=== PATIENT | female | born 1945 | race Caucasian/White ===

== ENCOUNTER → 2017-02-28 | Outpatient (CLI) | payer MEDICARE | END | disposition home or self-care (01) | LOC: CFH 12:12 | PROVIDERS: ATTEND Internal Medicine Cardiovascular Disease | DX: I10 Essential (primary) hypertension (principal); R06.02 Shortness of breath; Z13.6 Encounter for screening for cardiovascular disorders; K44.9 Diaphragmatic hernia without obstruction or gangrene | CPT/HCPCS: 75571 ==

== ENCOUNTER → 2017-05-15 | Outpatient (CLI) | payer MEDICARE | END | disposition home or self-care (01) | LOC: CFH 07:40 | PROVIDERS: ATTEND Internal Medicine Cardiovascular Disease | DX: I25.10 Atherosclerotic heart disease of native coronary artery without angina pectoris (principal) | CPT/HCPCS: 78452; 93017; A9502 ==

== ENCOUNTER 2017-05-28 05:52 | Inpatient (IN) | payer MEDICARE ==
[~2017-05-28] VITALS: Ht 167.6 cm; Wt 80.3 kg
[2017-05-28] MEDS ORDERED: NITROGLYCERIN OINT 2%, 1GM TP ONE ×2 (06:06→06:30)
[2017-05-28] MEDS ORDERED: ACETAMINOPHEN 500 MG TABLET ONE (06:19)
[2017-05-28] MEDS ORDERED: SODIUM CHLORIDE FLUSH 10ML SYR IVF ONE (06:30)
[2017-05-28] MEDS ORDERED: ACETAMINOPHEN 500 MG TABLET PO ONE (06:30)
[2017-05-28] MEDS ORDERED: LOSA1TAB25 PO (06:41)
[2017-05-28] MEDS ORDERED: ATOR20TA PO (06:41)
[2017-05-28] MEDS ORDERED: LEVO25TA2 PO (06:41)
[2017-05-28] MEDS ORDERED: METO-264 PO (06:41)
[2017-05-28 06:55] LABS: BASOPHILS # (AUTO) 0.09 x10^3/uL (0-0.1); BASOPHILS % (AUTO) 1 % (0-1); EOSINOPHILS # (AUTO) 0.15 x10^3/uL (0-0.4); EOSINOPHILS % (AUTO) 2 % (1-7); LYMPHOCYTES # (AUTO) 1.56 x10^3/uL (1-3.4); LYMPHOCYTES % (AUTO) 24 % (22-44); MD NO; MEAN CORPUSCULAR HEMOGLOBIN 31.8 pg (27.0-34.8); MEAN CORPUSCULAR HGB CONC 34.4 g/dL (32.4-35.8); MEAN CORPUSCULAR VOLUME 92.4 fL (80-100); MEAN PLATELET VOLUME 9.5 fL (7.4-10.4); MONOCYTES # (AUTO) 0.53 x10^3/uL (0.2-0.8); MONOCYTES % (AUTO) 8 % (2-9); NEUTROPHILS % (AUTO) 65 % (42-75); PLATELET COUNT 204 x10^3/uL (130-400); RED BLOOD COUNT 3.78 x10^6/uL (3.82-5.3); RED CELL DISTRIBUTION WIDTH 12.8 % (9.6-15.2)
[2017-05-28] MEDS ORDERED: ASPI-496 PO (07:05)
[2017-05-28 07:07] LABS: ALANINE AMINOTRANSFERASE 20 U/L (12-78); ALBUMIN 3.2 g/dL (3.4-5.0); ANION GAP 5 mmol/L (5-15); CALCIUM 8.4 mg/dL (8.5-10.1); CHLORIDE 110 mmol/L (98-107); CREATININE 0.72 mg/dL (0.55-1.02)
[2017-05-28 07:12] LABS: ALKALINE PHOSPHATASE 67 U/L (45-117); BILIRUBIN,TOTAL 0.5 mg/dL (0.2-1.0); TROPONIN I 0.052 ng/mL (0.000-0.045)
[2017-05-28 08:53] VITALS: BP 133/73
[2017-05-28] MEDS ORDERED: ONDANSETRON 2MG/ML, 2ML IVPush PRN (11:00)
[2017-05-28] MEDS ORDERED: HYDROmorphone 1 MG/ML, 1ML IM PRN (11:00)
[2017-05-28] MEDS ORDERED: NITROGLYCERIN 0.4 MG BOTTLE (25 TABS) SL PRN (11:00)
[2017-05-28] MEDS ORDERED: HEPARIN 25,000 UNITS/500ML PMX 500 ML IV PRN (11:00)
[2017-05-28] MEDS ORDERED: LABETALOL 5MG/ML, 20ML IVPush PRN (11:00)
[2017-05-28] MEDS ORDERED: TRAZODONE 50MG TABLET PO PRN (11:00)
[2017-05-28] MEDS ORDERED: HEPARIN 5,000 UNITS/ML, 1ML IV ONE (11:00)
[2017-05-28] MEDS ORDERED: ONDANSETRON ODT 4 MG PO PRN (11:00)
[2017-05-28] MEDS ORDERED: BISACODYL 10 MG SUPP PR PRN (11:00)
[2017-05-28] MEDS ORDERED: GUAIFENESIN/DM 200-20MG, 10ML UDC PO PRN (11:00)
[2017-05-28] MEDS ORDERED: DOCUSATE 100 MG CAPSULE PO PRN (11:00)
[2017-05-28] MEDS ORDERED: hydrALAzine 20 MG/ML, 1ML IVPush PRN (11:00)
[2017-05-28] MEDS ORDERED: ENALAPRILAT 1.25 MG/ML, 2ML IVPush PRN (11:00)
[2017-05-28 11:04] LABS: HCT (SEDRATE) 34.6 % (34.6-47.8)
[2017-05-28 11:19] LABS: TROPONIN I 0.919 ng/mL (0.000-0.045)
[2017-05-28 12:03] LABS: HEMOGLOBIN A1C 6.2 % (4.2-6.3)
[2017-05-28 13:10] LABS: FREE T4 (FREE THYROXINE) 2.11 ng/dL (0.76-1.46); THYROID STIMULATING HORMONE 1.54 mIU/L (0.358-3.740)
[2017-05-28 13:20] VITALS: BP 127/79
[2017-05-28 13:39] VITALS: BP 133/73
[2017-05-28] MEDS: FAMOTIDINE 20 MG TABLET PO SCH (17:25)
[2017-05-28] MEDS: HEPARIN 5,000 UNITS/ML, 1ML IV PRN (18:22)
[2017-05-28 20:45] VITALS: BP 130/81
[2017-05-28] MEDS: LACTULOSE 10 GM/15 ML UDC PO SCH (21:00)
[2017-05-28] MEDS ORDERED: ATORVASTATIN 40 MG TABLET PO SCH (21:00)
[2017-05-28] MEDS ORDERED: ASPIRIN 81 MG TABLET EC PO SCH (21:00)
[2017-05-28] MEDS ORDERED: DIPHENHYDRAMINE 25 MG CAPSULE PO PRN (21:30)
[2017-05-28] MEDS: ACETAMINOPHEN 325 MG TABLET PO PRN (21:45)
[2017-05-28 22:51] VITALS: BP 149/80
[2017-05-28 23:20] VITALS: BP 113/67
[2017-05-29] MEDS: HEPARIN 5,000 UNITS/ML, 1ML IV PRN ×2 (01:20→09:06)
[2017-05-29 02:15] VITALS: BP 136/77
[2017-05-29] MEDS ORDERED: LEVOTHYROXINE 25 MCG TABLET PO SCH (06:00)
[2017-05-29 06:47] VITALS: BP 137/79
[2017-05-29 08:20] LABS: BASOPHILS # (AUTO) 0.08 x10^3/uL (0-0.1); BASOPHILS % (AUTO) 1 % (0-1); EOSINOPHILS # (AUTO) 0.12 x10^3/uL (0-0.4); EOSINOPHILS % (AUTO) 2 % (1-7); LYMPHOCYTES # (AUTO) 1.83 x10^3/uL (1-3.4); LYMPHOCYTES % (AUTO) 23 % (22-44); MD NO; MEAN CORPUSCULAR HEMOGLOBIN 32.5 pg (27.0-34.8); MEAN CORPUSCULAR HGB CONC 34.4 g/dL (32.4-35.8); MEAN CORPUSCULAR VOLUME 94.3 fL (80-100); MEAN PLATELET VOLUME 9.7 fL (7.4-10.4); MONOCYTES % (AUTO) 8 % (2-9); NEUTROPHILS # (AUTO) 5.37 x10^3/uL (1.8-6.8); NEUTROPHILS % (AUTO) 67 % (42-75); PLATELET COUNT 203 x10^3/uL (130-400); RED BLOOD COUNT 3.94 x10^6/uL (3.82-5.3); RED CELL DISTRIBUTION WIDTH 12.9 % (9.6-15.2)
[2017-05-29] MEDS: LACTULOSE 10 GM/15 ML UDC PO SCH (08:28)
[2017-05-29 08:30] LABS: ANION GAP 5 mmol/L (5-15); CALCIUM 8.9 mg/dL (8.5-10.1); CHLORIDE 111 mmol/L (98-107); CHOLESTEROL, TOTAL 95 mg/dL (140-239); CREATININE 0.62 mg/dL (0.55-1.02)
[2017-05-29] MEDS: FAMOTIDINE 20 MG TABLET PO SCH (08:31)
[2017-05-29 08:32] LABS: CHOL/HDL RATIO 1.8; HDL CHOL % 57 % (28-40); HDL CHOLESTEROL (DIRECT) 54 mg/dL (40-60); LDL CHOLESTEROL,CALCULATED 32 mg/dL (54-169); LDL/HDL RATIO 0.6 (0.5-3.0); TRIGLYCERIDES 46 mg/dL (50-200); VLDL CHOLESTEROL 9 mg/dL (0-25)
[2017-05-29] MEDS ORDERED: METOPROLOL SUCCINATE 50 MG TAB.ER.24H PO SCH (09:00)
[2017-05-29] MEDS ORDERED: HYDROCHLOROTHIAZIDE 12.5 MG CAPSULE PO SCH (09:00)
[2017-05-29] MEDS ORDERED: LOSARTAN 50MG TABLET PO SCH (09:00)
[2017-05-29] MEDS ORDERED: MIDAZOLAM 1 MG/ML, 5ML ONE (10:41)
[2017-05-29] MEDS ORDERED: NITROGLYCERIN 5 MG/ML, 10ML ONE (10:42)
[2017-05-29] MEDS ORDERED: VERAPAMIL 2.5 MG/ML, 2ML ONE (10:42)
[2017-05-29] MEDS ORDERED: LIDOCAINE 2%, 20ML ONE (10:42)
[2017-05-29] MEDS ORDERED: FENTANYL PF 100 MCG/2ML ONE (10:42)
[2017-05-29] MEDS ORDERED: HEPARIN 1,000 UNITS/ML, 10ML ONE (10:42)
[2017-05-29] MEDS ORDERED: BIVALIRUDIN 250 MG ONE (10:42)
[2017-05-29] MEDS ORDERED: SODIUM CHLORIDE 0.9% 1,000 ML IV SCH (12:03)
[2017-05-29 14:34] VITALS: BP 118/73
[2017-05-29] MEDS: ACETAMINOPHEN 325 MG TABLET PO PRN (15:08)
[2017-05-29] MEDS ORDERED: VALS80TA MT (15:29)
[2017-05-29] MEDS ORDERED: LISI-167 PO (15:29)
[2017-05-29] MEDS ORDERED: LEVO50TA PO (16:08)
[2017-05-29] MEDS ORDERED: ATOR40TA78 PO (17:20)
[2017-05-29 18:58] VITALS: BP 103/53
[2017-05-29 19:44] VITALS: BP_SYST 123; BP_SYST 126; BP_SYST 129; BP_DIAS 72; BP_DIAS 78; BP_DIAS 79
== END 2017-05-29 20:25 | disposition home or self-care (01) | DRG 281 ==
LOC: ED 07:10 → EDIP 07:19 → ED 07:24 → 5SO 09:45
PROVIDERS: ADMIT Family Medicine; ATTEND Family Medicine
PROC: 4A023N7 Measurement of Cardiac Sampling and Pressure, Left Heart, Percutaneous Approach (ICD-10-PCS; principal; 2017-05-29)
PROC: B2111ZZ Fluoroscopy of Multiple Coronary Arteries using Low Osmolar Contrast (ICD-10-PCS; 2017-05-29)
PROC: B2151ZZ Fluoroscopy of Left Heart using Low Osmolar Contrast (ICD-10-PCS; 2017-05-29)
DX: I51.81 Takotsubo syndrome (principal); I21.4 Non-ST elevation (NSTEMI) myocardial infarction; I25.110 Atherosclerotic heart disease of native coronary artery with unstable angina pectoris; E03.9 Hypothyroidism, unspecified; E78.5 Hyperlipidemia, unspecified; I10 Essential (primary) hypertension; Z87.891 Personal history of nicotine dependence; Z88.5 Allergy status to narcotic agent
CPT/HCPCS: 36415; 80048; 80053; 80061; 83036; 83690; 83735; 84100; 84439; 84443; 84484; 85025; 85520; 85651; 93005; 93458; 99156; 99285; C1769; C1894; J0583; J1644; J2250; J2405; J3010; J3490; Q0163; Q9967

== ENCOUNTER 2017-06-22 23:56 | Emergency (ER) | payer MEDICARE ==
[~2017-06-22] VITALS: Ht 172.7 cm; Wt 97.0 kg
[~2017-06-22 23:56] MED LIST: ASPI-496 PO; ATOR20TA PO; ATOR40TA78 PO; LEVO25TA2 PO; LEVO50TA PO; LISI-167 PO; LOSA1TAB25 PO; METO-264 PO; VALS80TA MT
[2017-06-23 00:40] VITALS: BP 164/78
[2017-06-23 01:06] LABS: CULTURE INDICATED? YES; MICROSCOPIC INDICATED
[2017-06-23] MEDS ORDERED: PHENAZOPYRIDINE 200 MG TABLET ONE (01:56)
[2017-06-23] MEDS ORDERED: CIPROFLOXACIN 500 MG TABLET ONE (01:57)
[2017-06-23] MEDS ORDERED: ONDANSETRON ODT 4 MG ONE (01:57)
[2017-06-23 01:58] LABS: MICROSCOPIC INDICATED
[2017-06-23 01:59] LABS: CULTURE INDICATED? YES
[2017-06-23] MEDS ORDERED: ONDANSETRON ODT 4 MG PO ONE (02:00)
[2017-06-23] MEDS ORDERED: CIPROFLOXACIN 500 MG TABLET PO ONE (02:00)
[2017-06-23] MEDS ORDERED: PHENAZOPYRIDINE 200 MG TABLET PO ONE (02:00)
== END 2017-06-23 02:38 | disposition home or self-care (01) ==
LOC: ED 23:59
DX: N30.01 Acute cystitis with hematuria (principal); I10 Essential (primary) hypertension; E03.9 Hypothyroidism, unspecified; M32.9 Systemic lupus erythematosus, unspecified
CPT/HCPCS: 81001; 87077; 87086; 87186; 99284; Q0162

== ENCOUNTER → 2017-09-14 | Outpatient (CLI) | payer MEDICARE ==
[~2017-09-14] MED LIST changes: -VALS80TA MT; +VALS80TA29 MT
== END | disposition home or self-care (01) ==
LOC: CFH 08:50
PROVIDERS: ATTEND Internal Medicine
DX: Z12.31 Encounter for screening mammogram for malignant neoplasm of breast (principal)
CPT/HCPCS: 77067

== ENCOUNTER 2017-10-09 23:46 | Observation (INO) | payer MEDICARE ==
[~2017-10-09] VITALS: Ht 167.6 cm; Wt 81.5 kg
[2017-10-10 00:30] LABS: BASOPHILS # (AUTO) 0.06 x10^3/uL (0-0.1); BASOPHILS % (AUTO) 1 % (0-1); EOSINOPHILS # (AUTO) 0.22 x10^3/uL (0-0.4); EOSINOPHILS % (AUTO) 3 % (1-7); LYMPHOCYTES # (AUTO) 2.25 x10^3/uL (1-3.4); LYMPHOCYTES % (AUTO) 31 % (22-44); MD NO; MEAN CORPUSCULAR HEMOGLOBIN 32.7 pg (27.0-34.8); MEAN CORPUSCULAR HGB CONC 34.2 g/dL (32.4-35.8); MEAN CORPUSCULAR VOLUME 95.5 fL (80-100); MEAN PLATELET VOLUME 9.1 fL (7.4-10.4); MONOCYTES % (AUTO) 10 % (2-9); NEUTROPHILS # (AUTO) 3.98 x10^3/uL (1.8-6.8); NEUTROPHILS % (AUTO) 55 % (42-75); PLATELET COUNT 218 x10^3/uL (130-400); RED BLOOD COUNT 3.91 x10^6/uL (3.82-5.3); RED CELL DISTRIBUTION WIDTH 13.1 % (9.6-15.2)
[2017-10-10] MEDS ORDERED: SODIUM CHLORIDE FLUSH 10ML SYR IVF ONE (00:30)
[2017-10-10] MEDS ORDERED: NITROGLYCERIN SINGLE TAB 0.4 MG SL PRN (00:30)
[2017-10-10] MEDS ORDERED: ONDANSETRON ODT 4 MG PO ONE (00:30)
[2017-10-10] MEDS ORDERED: FENTANYL PF 100 MCG/2ML IVPush PRN (00:30)
[2017-10-10] MEDS ORDERED: NITROGLYCERIN SINGLE TAB 0.4 MG SL ONE (00:32)
[2017-10-10] MEDS ORDERED: ONDANSETRON ODT 4 MG ONE (00:32)
[2017-10-10] MEDS ORDERED: FENTANYL PF 100 MCG/2ML ONE (00:32)
[2017-10-10 00:39] LABS: INTERNATIONAL NORMALIZED RATIO 0.98 (0.93-1.1); PROTHROMBIN TIME 10.2 Seconds (9.6-11.5)
[2017-10-10 00:43] LABS: ALANINE AMINOTRANSFERASE 26 U/L (12-78); ALBUMIN 3.5 g/dL (3.4-5.0); ANION GAP 6 mmol/L (5-15); CALCIUM 9.3 mg/dL (8.5-10.1); CHLORIDE 110 mmol/L (98-107); CREATININE 0.93 mg/dL (0.55-1.02)
[2017-10-10 00:47] LABS: ALKALINE PHOSPHATASE 73 U/L (45-117); BILIRUBIN,TOTAL 0.4 mg/dL (0.2-1.0); TOTAL PROTEIN 7.7 g/dL (6.4-8.2); TROPONIN I < 0.015 ng/mL (0.000-0.045)
[2017-10-10] MEDS ORDERED: OMNIPAQUE 350 MG/ML, 100ML BOTTLE ONE (01:25)
[2017-10-10] MEDS ORDERED: NITROGLYCERIN OINT 2%, 1GM TP ONE (02:00)
[2017-10-10 03:05] VITALS: BP 149/75
[2017-10-10 03:10] VITALS: BP 149/75
[2017-10-10] MEDS ORDERED: SODIUM CHLORIDE 0.9% 1,000 ML IV SCH (05:06)
[2017-10-10] MEDS ORDERED: ATOR-2 PO (05:22)
[2017-10-10] MEDS ORDERED: POTA20TA89 PO (05:22)
[2017-10-10] MEDS ORDERED: NITR0.4T28 SL (05:22)
[2017-10-10] MEDS ORDERED: MAGN200T7 PO (05:22)
[2017-10-10] MEDS ORDERED: GUAIFENESIN/DM 200-20MG, 10ML UDC PO PRN (05:30)
[2017-10-10] MEDS ORDERED: KETOROLAC 30 MG/1 ML IVPush SCH ×2 (05:30→10:30)
[2017-10-10] MEDS ORDERED: hydrALAzine 20 MG/ML, 1ML IVPush PRN (05:30)
[2017-10-10] MEDS ORDERED: ONDANSETRON ODT 4 MG PO PRN (05:30)
[2017-10-10] MEDS ORDERED: ACETAMINOPHEN 500 MG TABLET PO PRN (05:30)
[2017-10-10] MEDS ORDERED: LEVOTHYROXINE 50 MCG TABLET PO SCH (06:00)
[2017-10-10 06:46] LABS: CHOLESTEROL, TOTAL 89 mg/dL (140-239); TRIGLYCERIDES 39 mg/dL (50-200); VLDL CHOLESTEROL 8 mg/dL (0-25)
[2017-10-10 06:49] LABS: CHOL/HDL RATIO 2.1; HDL CHOL % 48 % (28-40); HDL CHOLESTEROL (DIRECT) 43 mg/dL (40-60); LDL CHOLESTEROL,CALCULATED 38 mg/dL (54-169); LDL/HDL RATIO 0.9 (0.5-3.0); TROPONIN I < 0.015 ng/mL (0.000-0.045)
[2017-10-10 07:54] VITALS: BP 132/69
[2017-10-10] MEDS ORDERED: VALSARTAN 80 MG TABLET PO SCH (09:00)
[2017-10-10] MEDS ORDERED: METOPROLOL SUCCINATE 50 MG TAB.ER.24H PO SCH (09:00)
[2017-10-10] MEDS ORDERED: KETOROLAC 30 MG/1 ML IVPush PRN (10:30)
[2017-10-10] MEDS ORDERED: CYCLOBENZAPRINE 10 MG TABLET PO PRN (11:30)
[2017-10-10 12:04] VITALS: BP 132/76
[2017-10-10] MEDS ORDERED: CYCL-259 PO (15:11)
[2017-10-10] MEDS ORDERED: ASPIRIN 81 MG TABLET EC PO SCH (21:00)
[2017-10-10] MEDS ORDERED: ATORVASTATIN 40 MG TABLET PO SCH (21:00)
== END 2017-10-10 15:45 | disposition home or self-care (01) ==
LOC: ED 23:59 → EDIP 10-10 01:53 → INTOOBSV 10-10 01:53 → 4WST 10-10 03:17 → DCLOUNGE 10-10 15:36
PROVIDERS: ADMIT Hospitalist; ATTEND Hospitalist
DX: M54.5 Low back pain (principal); E78.5 Hyperlipidemia, unspecified; I10 Essential (primary) hypertension; I25.10 Atherosclerotic heart disease of native coronary artery without angina pectoris
CPT/HCPCS: 36415; 71045; 71275; 80053; 80061; 83880; 84484; 85025; 85610; 85730; 93005; 96361; 96374; 96375; 96376; 99285; G0378; J1885; J3010; J7030; Q0162; Q9967

== ENCOUNTER 2019-04-12 19:30 | Emergency (ER) | payer MEDICARE ==
[~2019-04-12] VITALS: Ht 167.6 cm; Wt 82.7 kg
[~2019-04-12 19:30] MED LIST changes: +ATOR-2 PO; +CYCL-259 PO; +MAGN200T7 PO; +NITR0.4T28 SL; +POTA20TA89 PO; -VALS80TA29 MT; +VALS80TA30 MT
--- NOTE | 2019-04-12 19:52 | NUR ---
PT C/O 10/10 PAIN WITH URINATION. NO FEVER PRESENT, URINE TEA COLORED. PT RESORTS HX OF UTI AND HAS SEEN UROLOGIST IN LAST WEEK. PT RESTING ON GURNEY WITH FAMILY AT BS. PT CONNECTED TO MONITORING, SAFETY MEASURES IN PLACE, CALL LIGHT WITHIN REACH.
--- NOTE | 2019-04-12 19:54 | NUR ---
URINE SAMPLE PROVIDED.
[2019-04-12] MEDS ORDERED: PHENAZOPYRIDINE 200 MG TABLET PO ONE (20:00)
[2019-04-12 20:08] LABS: CULTURE INDICATED? YES; MICROSCOPIC INDICATED
[2019-04-12] MEDS ORDERED: PHENAZOPYRIDINE 200 MG TABLET ONE (20:17)
[2019-04-12 20:20] VITALS: BP 145/60
--- NOTE | 2019-04-12 20:21 | NUR ---
PT RESTING ON [place] WITH FAMILY AT BS. ALL QUESTIONS ANSWERED. MONITORING IN PLACE, CALL LIGHT WITHIN REACH, SAFETY MEASURES IN PLACE.
[2019-04-12] MEDS ORDERED: CEFDINIR 300 MG CAPSULE PO ONE (20:30)
[2019-04-12] MEDS ORDERED: CEFDINIR 300 MG CAPSULE ONE (20:34)
== END 2019-04-12 21:02 | disposition home or self-care (01) ==
LOC: ED 21:00
DX: N30.01 Acute cystitis with hematuria (principal); I10 Essential (primary) hypertension; Z87.891 Personal history of nicotine dependence
CPT/HCPCS: 81001; 87077; 87086; 87186; 99283

== ENCOUNTER → 2019-05-09 | Outpatient (CLI) | payer MEDICARE ==
[~2019-05-09] MED LIST changes: +OMNIPAQUE 350 MG/ML, 150 ML BOTTLE ONE
== END | disposition home or self-care (01) ==
LOC: CFH 11:33
PROVIDERS: ATTEND Physician Assistant
DX: K44.9 Diaphragmatic hernia without obstruction or gangrene (principal); K76.89 Other specified diseases of liver; N39.0 Urinary tract infection, site not specified; N94.89 Other specified conditions associated with female genital organs and menstrual cycle; M47.816 Spondylosis without myelopathy or radiculopathy, lumbar region; M48.061 Spinal stenosis, lumbar region without neurogenic claudication
CPT/HCPCS: 74178; 82565; Q9967

== ENCOUNTER → 2020-05-19 | Outpatient (CLI) | payer MEDICARE ==
[~2020-05-19] MED LIST changes: -OMNIPAQUE 350 MG/ML, 150 ML BOTTLE ONE; +REGADENOSON 0.4 MG/5 ML SYRINGE ONE
== END | disposition home or self-care (01) ==
LOC: CFH 07:25
PROVIDERS: ATTEND Internal Medicine Cardiovascular Disease
DX: I08.8 Other rheumatic multiple valve diseases (principal); I25.10 Atherosclerotic heart disease of native coronary artery without angina pectoris; I10 Essential (primary) hypertension
CPT/HCPCS: 78452; 93017; 93306; A9502; J2785

== ENCOUNTER 2020-09-24 22:12 | Inpatient (IN) | payer MEDICARE ==
[~2020-09-24] VITALS: Ht 165.1 cm; Wt 79.0 kg
[~2020-09-24 22:12] MED LIST changes: -CYCL-259 PO; +CYCL10TA2 PO; -REGADENOSON 0.4 MG/5 ML SYRINGE ONE
--- NOTE | 2020-09-24 22:28 | NUR ---
PT CHANGING INTO GOWN AT THIS TIME
--- NOTE | 2020-09-24 22:40 | NUR ---
PT STS BM BRIGHT RED BLOOD STARTED TONIGHT, DENIES PAIN BUT STS SOME CRAMPIING. PT CALM COOPERATIVE, CONNECTED TO MONITORIING VSS.
[2020-09-24] MEDS ORDERED: SODIUM CHLORIDE FLUSH 10ML SYR IVF ONE (23:30)
[2020-09-25 00:18] LABS: BASOPHILS % (AUTO) 1 % (0-1); EOSINOPHILS % (AUTO) 3 % (1-7); LYMPHOCYTES % (AUTO) 23 % (22-44); MEAN CORPUSCULAR HGB CONC 34.2 g/dL (32.4-35.8); MEAN PLATELET VOLUME 9.8 fL (7.4-10.4); MONOCYTES % (AUTO) 9 % (2-9); NEUTROPHILS % (AUTO) 64 % (42-75); PLATELET COUNT 227 x10^3/uL (130-400); RED CELL DISTRIBUTION WIDTH 13.1 % (9.6-15.2)
[2020-09-25 00:19] LABS: MD NO
--- NOTE | 2020-09-25 00:20 | NUR ---
PT HAD AN EPISODE OF BRIGHT RED BLOOD, PT CLEANED AND REPOSITIONED TO COMFORT
[2020-09-25 00:23] LABS: ALANINE AMINOTRANSFERASE 31 U/L (12-78); ALBUMIN 3.4 g/dL (3.4-5.0); ANION GAP 4 mmol/L (5-15); CALCIUM 9.4 mg/dL (8.5-10.1); CHLORIDE 112 mmol/L (98-107); CREATININE 0.67 mg/dL (0.55-1.02); INTERNATIONAL NORMALIZED RATIO 1.02 (0.93-1.1); PROTHROMBIN TIME 10.9 Seconds (9.6-11.5)
[2020-09-25 00:26] LABS: ALKALINE PHOSPHATASE 103 U/L (45-117); BILIRUBIN,TOTAL 0.4 mg/dL (0.2-1.0); TOTAL PROTEIN 7.3 g/dL (6.4-8.2)
--- NOTE | 2020-09-25 00:42 | NUR ---
REPORT TO KAYLA AT THIS TIME ALL QUESTIONS ADDRESSED
--- NOTE | 2020-09-25 00:46 | NUR ---
RECIEVED REPORT FROM CARL TRISTAN.
[2020-09-25] MEDS ORDERED: OMNIPAQUE 350 MG/ML, 100ML BOTTLE ONE (01:06)
--- NOTE | 2020-09-25 01:08 | NUR ---
PT BACK FROM CT OF ABD.
--- NOTE | 2020-09-25 01:18 | NUR ---
PT STATES STILL FEELS ABDOMINAL CRAMPING/BLOATED. PASS CLOTS AND BLOOD WHEN WENT TO THE RESTROOM AND ON THE PAD ABOUT 2 TBSP. TOTAL OF 3 TIMES AT HOSPITAL TONIGHT. PT ALSO STATES IS ON BIPAP WHEN SLEEPS.
--- NOTE | 2020-09-25 01:50 | NUR ---
PT JUST STATED PASSED GAS AND SOME OF THE BLOATING IS DOWN.
[2020-09-25] MEDS ORDERED: SODIUM CHLORIDE 0.9% 1,000ML IVBOLUS ONE (03:00)
[2020-09-25] MEDS ORDERED: PANTOPRAZOLE 40 MG IV IVPush ONE (03:00)
[2020-09-25] MEDS ORDERED: PANTOPRAZOLE 40 MG IV ONE (03:00)
[2020-09-25] MEDS ORDERED: ACETAMINOPHEN 325 MG TABLET PO ONE (03:00)
[2020-09-25] MEDS ORDERED: ONDANSETRON 2MG/ML, 2ML IV PRN (03:00)
[2020-09-25] MEDS ORDERED: SODIUM CHLORIDE 0.9% 1,000 ML IV SCH (03:00)
[2020-09-25 04:42] VITALS: BP 144/51
[2020-09-25] MEDS: LEVOTHYROXINE 50 MCG TABLET PO SCH (06:06)
[2020-09-25 06:41] VITALS: BP 153/77
[2020-09-25] MEDS: VALSARTAN 80 MG TABLET PO SCH ×2 (09:53→09:58)
[2020-09-25] MEDS: METOPROLOL SUCCINATE 50 MG TAB.ER.24H PO SCH (09:53)
[2020-09-25 09:55] LABS: ALANINE AMINOTRANSFERASE 26 U/L (12-78); ALBUMIN 3.1 g/dL (3.4-5.0); ANION GAP 3 mmol/L (5-15); CALCIUM 8.5 mg/dL (8.5-10.1); CHLORIDE 114 mmol/L (98-107); CREATININE 0.51 mg/dL (0.55-1.02)
[2020-09-25 09:57] LABS: ALKALINE PHOSPHATASE 84 U/L (45-117); BILIRUBIN,TOTAL 0.7 mg/dL (0.2-1.0); TOTAL PROTEIN 6.4 g/dL (6.4-8.2)
[2020-09-25] MEDS: PANTOPRAZOLE 40 MG IV IVPush SCH ×2 (12:57→22:43)
[2020-09-25 13:10] VITALS: BP 170/70
[2020-09-25] MEDS ORDERED: LOSA25TA25 PO (14:05)
[2020-09-25] MEDS ORDERED: ACETAMINOPHEN 325 MG TABLET PO PRN (16:00)
[2020-09-25] MEDS: POLYETHYLENE GLYCOL 17 GM PACKET PO SCH (19:43)
[2020-09-25 19:46] VITALS: BP 167/73
[2020-09-25] MEDS ORDERED: ATORVASTATIN 80 MG TABLET PO SCH (21:00)
[2020-09-25] MEDS ORDERED: ATORVASTATIN 20 MG TABLET PO SCH (21:00)
[2020-09-26 00:41] VITALS: BP 170/77
[2020-09-26 03:32] LABS: ALBUMIN 2.9 g/dL (3.4-5.0); ANION GAP 4 mmol/L (5-15); BASOPHILS % (AUTO) 1 % (0-1); CALCIUM 8.7 mg/dL (8.5-10.1); CHLORIDE 114 mmol/L (98-107); EOSINOPHILS % (AUTO) 3 % (1-7); LYMPHOCYTES % (AUTO) 34 % (22-44); MEAN CORPUSCULAR HEMOGLOBIN 33.6 pg (27.0-34.8); MEAN CORPUSCULAR HGB CONC 35.3 g/dL (32.4-35.8); MEAN PLATELET VOLUME 8.8 fL (7.4-10.4); MONOCYTES % (AUTO) 10 % (2-9); NEUTROPHILS % (AUTO) 52 % (42-75); PLATELET COUNT 192 x10^3/uL (130-400); RED BLOOD COUNT 3.35 x10^6/uL (3.82-5.3)
[2020-09-26 03:36] LABS: ALANINE AMINOTRANSFERASE 24 U/L (12-78); ALKALINE PHOSPHATASE 81 U/L (45-117); BILIRUBIN,TOTAL 0.8 mg/dL (0.2-1.0); TOTAL PROTEIN 6.1 g/dL (6.4-8.2)
[2020-09-26 03:37] LABS: MD NO
[2020-09-26] MEDS: LEVOTHYROXINE 50 MCG TABLET PO SCH (06:00)
[2020-09-26 07:55] VITALS: BP 159/73
[2020-09-26] MEDS ORDERED: LOSARTAN 25MG TABLET PO SCH (09:00)
[2020-09-26] MEDS: POLYETHYLENE GLYCOL 17 GM PACKET PO SCH (09:00)
[2020-09-26] MEDS: METOPROLOL SUCCINATE 50 MG TAB.ER.24H PO SCH (09:47)
[2020-09-26] MEDS: PANTOPRAZOLE 40 MG IV IVPush SCH (11:00)
[2020-09-26 12:14] VITALS: BP 166/76
== END 2020-09-26 13:52 | disposition home or self-care (01) | DRG 395 ==
LOC: ED 09-25 00:42 → EDIP 09-25 02:46 → 4NE 09-25 03:36
PROVIDERS: ADMIT Family Medicine; ATTEND Family Medicine
DX: K62.6 Ulcer of anus and rectum (principal); E03.9 Hypothyroidism, unspecified; E78.5 Hyperlipidemia, unspecified; I10 Essential (primary) hypertension; I73.9 Peripheral vascular disease, unspecified; K29.70 Gastritis, unspecified, without bleeding; K64.9 Unspecified hemorrhoids; K76.0 Fatty (change of) liver, not elsewhere classified; Z79.02 Long term (current) use of antithrombotics/antiplatelets; Z79.82 Long term (current) use of aspirin; Z80.9 Family history of malignant neoplasm, unspecified; Z82.3 Family history of stroke; Z88.5 Allergy status to narcotic agent; Z82.49 Family history of ischemic heart disease and other diseases of the circulatory system; Z98.51 Tubal ligation status
CPT/HCPCS: 36415; 74177; 80053; 85014; 85018; 85025; 85610; 85730; 86900; 96374; 99285; G0378; Q9967; C9113; J7030

== ENCOUNTER 2021-01-11 20:14 | Observation (INO) | payer MEDICARE ==
[~2021-01-11] VITALS: Ht 167.6 cm; Wt 80.6 kg
[~2021-01-11 20:14] MED LIST changes: +LOSA25TA25 PO
[2021-01-11] MEDS ORDERED: SODIUM CHLORIDE FLUSH 10ML SYR IVF ONE (20:30)
--- NOTE | 2021-01-11 20:40 | NUR ---
pt brought in by EMS from home for acute suddent onset midsternal chest pain w/radiation to back. The episode lasted 10 minutes, pain described as sharp and stabbing. During episode, pt became diaphoretic, nausea, and had associated shortness of breath. Pt took ASA prior to EMS arrival. Is on Plavix for hx of PAD, pt has +1 pulses bilateral in LE which she says is chronic issue. Per her vascular surgeon, she is not a candidate for surgery. pt had hx of HTN, HLD, PAD, no DM, No NH, no Stents, NO CVA. Pt is alert and oriented x4, GCS 15, Vitals WNL. Pt had SBP >200 w/ EMS, but since resolved. Pt is pain free now, endorses sob pt is fully vaccinat
[2021-01-11 20:51] LABS: BASOPHILS % (AUTO) 1 % (0-1); EOSINOPHILS % (AUTO) 2 % (1-7); LYMPHOCYTES % (AUTO) 24 % (22-44); MEAN CORPUSCULAR HEMOGLOBIN 31.9 pg (27.0-34.8); MEAN CORPUSCULAR HGB CONC 34.4 g/dL (32.4-35.8); MEAN PLATELET VOLUME 8.9 fL (7.4-10.4); MONOCYTES % (AUTO) 11 % (2-9); NEUTROPHILS % (AUTO) 62 % (42-75); PLATELET COUNT 203 x10^3/uL (130-400); RED BLOOD COUNT 4.03 x10^6/uL (3.82-5.3); RED CELL DISTRIBUTION WIDTH 13.4 % (9.6-15.2)
[2021-01-11 20:59] LABS: ANION GAP 5 mmol/L (5-15); CALCIUM 9.2 mg/dL (8.5-10.1); CHLORIDE 106 mmol/L (98-107)
[2021-01-11 21:05] LABS: CREATININE 0.84 mg/dL (0.55-1.02); TROPONIN I < 0.015 ng/mL (0.000-0.045)
[2021-01-11] MEDS ORDERED: OMNIPAQUE 350 MG/ML, 75ML BOTTLE ONE (21:54)
--- NOTE | 2021-01-11 22:29 | NUR ---
Resting, denies needs. Daughter at bedside. Pending results. In no acute distress.
[2021-01-11] MEDS ORDERED: ONDANSETRON ODT 4 MG PO PRN (23:30)
[2021-01-11] MEDS ORDERED: POLYETHYLENE GLYCOL 17 GM PACKET PO PRN (23:30)
[2021-01-11] MEDS ORDERED: hydrALAzine 20 MG/ML, 1ML IVPush PRN (23:30)
[2021-01-11] MEDS ORDERED: DOCUSATE 100 MG CAPSULE PO PRN (23:30)
[2021-01-11] MEDS ORDERED: ENOXAPARIN 40 MG/0.4 ML SQ SCH (23:30)
[2021-01-11] MEDS ORDERED: MELATONIN 5 MG TABLET PO PRN (23:30)
[2021-01-11] MEDS ORDERED: ONDANSETRON 2MG/ML, 2ML IVPush PRN (23:30)
[2021-01-11] MEDS ORDERED: NITROGLYCERIN SINGLE TAB 0.4 MG SL PRN (23:30)
[2021-01-11] MEDS ORDERED: BISACODYL 10 MG SUPP PR PRN (23:30)
[2021-01-11] MEDS ORDERED: ENALAPRILAT 1.25 MG/ML, 2ML IVPush PRN (23:30)
[2021-01-11] MEDS ORDERED: ACETAMINOPHEN 325 MG TABLET PO PRN (23:30)
--- NOTE | 2021-01-11 23:36 | NUR ---
Report to AZALEA Juarez no further questions at this time.
[2021-01-12] MEDS ORDERED: MAALOX/HYOSCYAMINE/LIDOCAINE 45 ML BTL PO PRN
[2021-01-12 00:11] VITALS: BP 186/71
[2021-01-12 00:14] VITALS: BP 158/72
[2021-01-12 02:24] LABS: TROPONIN I < 0.015 ng/mL (0.000-0.045)
[2021-01-12 02:26] VITALS: BP 125/73
[2021-01-12] MEDS ORDERED: LEVOTHYROXINE 50 MCG TABLET PO SCH (06:00)
[2021-01-12] MEDS ORDERED: PANTOPRAZOLE 20MG TABLET PO SCH (06:00)
[2021-01-12 08:00] VITALS: BP 121/65
[2021-01-12] MEDS ORDERED: LOSARTAN 25MG TABLET PO SCH (09:00)
[2021-01-12] MEDS ORDERED: MAGNESIUM OXIDE 400 MG TABLET PO SCH (09:00)
[2021-01-12] MEDS ORDERED: METOPROLOL SUCCINATE 25 MG TAB.ER.24H PO SCH (09:00)
[2021-01-12 09:58] LABS: TROPONIN I < 0.015 ng/mL (0.000-0.045)
[2021-01-12] MEDS ORDERED: REGADENOSON 0.4 MG/5 ML SYRINGE ONE (13:07)
[2021-01-12] MEDS ORDERED: CLOP75TA52 PO (16:12)
[2021-01-12 16:13] VITALS: BP 147/65
[2021-01-12] MEDS ORDERED: NITR0.4T28 SL (17:23)
[2021-01-12] MEDS ORDERED: PANT20TA4 PO (17:23)
[2021-01-12] MEDS ORDERED: ATORVASTATIN 80 MG TABLET PO SCH (21:00)
[2021-01-12] MEDS ORDERED: ASPIRIN 81 MG TABLET EC PO SCH (21:00)
== END 2021-01-12 17:58 | disposition home or self-care (01) ==
LOC: ED 21:15 → INTOOBSV 23:13 → EDIP 23:13 → 5SO 23:48
PROVIDERS: ADMIT Internal Medicine; ATTEND Family Medicine
DX: R07.89 Other chest pain (principal); Z20.822 Contact with and (suspected) exposure to COVID-19; R06.02 Shortness of breath; I10 Essential (primary) hypertension; R73.9 Hyperglycemia, unspecified; I73.9 Peripheral vascular disease, unspecified; E78.5 Hyperlipidemia, unspecified; E03.9 Hypothyroidism, unspecified; I51.81 Takotsubo syndrome; R91.1 Solitary pulmonary nodule; I49.3 Ventricular premature depolarization; J18.9 Pneumonia, unspecified organism; I25.119 Atherosclerotic heart disease of native coronary artery with unspecified angina pectoris; Z87.891 Personal history of nicotine dependence; Z79.899 Other long term (current) drug therapy
CPT/HCPCS: 36415; 71045; 71275; 78452; 80048; 82040; 83036; 83880; 84484; 85025; 87635; 93005; 93017; 96372; 99285; A9502; G0378; J1650; J2785; Q9967; U0003; U0005